=== PATIENT | female | born 1980 | race Caucasian/White ===

== ENCOUNTER 2018-02-04 17:38 | Inpatient (IN) | payer MEDICAID ==
[2018-02-04] MEDS ORDERED: CEFTRIAXONE 2 GM INJ IVPB (18:00)
[2018-02-04] MEDS ORDERED: TERBUTALINE 1 ML (18:07)
[2018-02-04] MEDS: TERBUTALINE 1 MG/ML INJ SC (18:11)
[2018-02-04] MEDS: LACTATED RINGER'S 1,000 ML IV (18:23)
[2018-02-04] MEDS: BETAMET NA PHOS/AC(6 MG/ML) 5ML INJ IM (18:23)
[2018-02-04 18:38] LABS: ADD MAN DIFF? NO
[2018-02-04 18:39] LABS: WHITE BLOOD COUNT 11.3 10^3/ul (4.8-10.8)
[2018-02-04 18:39] LABS: BASOPHILS % 0.4 % (0.0-2.0); EOSINOPHILS % 0.3 % (0.0-7.0); HEMATOCRIT 36.4 % (37.0-47.0); HEMOGLOBIN 12.9 g/dl (12.0-16.0); LYMPHOCYTES % 8.5 % (15.0-51.0); MEAN CORPUSCULAR HEMOGLOBIN 32.7 pg (29.0-33.0); MEAN CORPUSCULAR HGB CONC 35.4 g/dl (32.0-37.0); MEAN CORPUSCULAR VOLUME 92.4 fl (82.0-101.0); MONOCYTE # 0.2 10^3/ul (0.3-0.9); MONOCYTES % 1.6 % (0.0-11.0); NEUTROPHIL # 9.9 10^3/ul (1.6-7.5); NEUTROPHILS % 87.6 % (39.0-77.0); PLATELET COUNT 269 10^3/UL (140-415); RED BLOOD COUNT 3.94 10^6/ul (4.20-5.40); RED CELL DISTRIBUTION WIDTH 13.1 % (11.5-14.5)
[2018-02-04] MEDS: MAGNESIUM SULFATE 4 GM/100 ML 100 ML IV (18:39)
[2018-02-04] MEDS: ACETAMINOPHEN 325 MG TAB PO (18:39)
[2018-02-04 18:59] LABS: ADD UMIC YES; INR 0.93; PROTIME 12.5 Sec (11.9-14.9); UR ASCORBIC ACID NEGATIVE (NEGATIVE); UR BILIRUBIN (Dip) NEGATIVE (NEGATIVE); UR BLOOD (Dip) 1+ mg/dL (NEGATIVE); UR CLARITY CLEAR (CLEAR); UR COLOR YELLOW (YELLOW); UR GLUCOSE (Dip) NEGATIVE (NEGATIVE); UR KETONES (Dip) 1+ mg/dL (NEGATIVE); UR LEUKOCYTE ESTERASE (Dip) NEGATIVE Leu/ul (NEGATIVE); UR NITRITE (Dip) NEGATIVE (NEGATIVE); UR RBC 4 /HPF (0-5); UR SPECIFIC GRAVITY (Dip) 1.014 (1.003-1.030); UR TOTAL PROTEIN (Dip) NEGATIVE (NEGATIVE); UR UROBILINOGEN (Dip) NEGATIVE (NEGATIVE); UR WBC 4 /HPF (0-5)
[2018-02-04 19:00] LABS: PARTIAL THROMBOPLASTIN TIME 24.6 Sec (23.0-35.0)
[2018-02-04] MEDS: MAGNESIUM SULFATE 20 GM/500 ML 500 ML IV (19:03)
[2018-02-04] MEDS: SOD CHLORIDE 0.9% 1,000 ML IV (19:34)
[2018-02-04 19:40] LABS: AMPHETAMINE/METHAMPHETAMINE Negative (NEGATIVE); BARBITURATES Negative (NEGATIVE); BENZODIAZEPINES Negative (NEGATIVE); CANNABINOIDS Negative (NEGATIVE); COCAINE Negative (NEGATIVE); OPIATES Negative (NEGATIVE)
[2018-02-04] MEDS: CEFTRIAXONE 2 GM/50 ML (PMX) 50 ML IVPB (20:04)
[2018-02-05 01:22] LABS: MAGNESIUM 5.6 mg/dl (1.7-2.5)
[2018-02-05] MEDS: LACTATED RINGER'S 1,000 ML IV ×2 (04:46→15:51)
[2018-02-05] MEDS: MAGNESIUM SULFATE 20 GM/500 ML 500 ML IV ×2 (04:49→15:54)
[2018-02-05] MEDS: SOD CHLORIDE 0.9% 1,000 ML IV (06:10)
[2018-02-05 07:31] LABS: MAGNESIUM 6.2 mg/dl (1.7-2.5)
[2018-02-05] MEDS: ACETAMINOPHEN 325 MG TAB PO (07:41)
[2018-02-05] MEDS: DOCUSATE SODIUM 100 MG CAP PO (09:54)
[2018-02-05] MEDS: PRENATAL VITAMIN PO (09:55)
[2018-02-05] MEDS: FERROUS SULFATE (EC) 325 MG TAB PO (09:55)
[2018-02-05] MEDS: BETAMET NA PHOS/AC(6 MG/ML) 5ML INJ IM (18:14)
[2018-02-05 19:09] LABS: MAGNESIUM 4.4 mg/dl (1.7-2.5)
[2018-02-06] MEDS: LACTATED RINGER'S 1,000 ML IV ×4 (03:16→21:00)
[2018-02-06] MEDS: DEXTROSE 5%-LR 1,000 ML IV (07:26)
[2018-02-06] MEDS: FERROUS SULFATE (EC) 325 MG TAB PO (09:50)
[2018-02-06] MEDS: DOCUSATE SODIUM 100 MG CAP PO (09:50)
[2018-02-06] MEDS: PRENATAL VITAMIN PO (09:51)
[2018-02-06] MEDS: DEXTROSE 5%-0.45% NACL 1,000 ML IV ×2 (13:50→20:33)
[2018-02-07] MEDS: DEXTROSE 5%-0.45% NACL 1,000 ML IV ×3 (03:33→19:00)
[2018-02-07] MEDS: LACTATED RINGER'S 1,000 ML IV ×3 (05:00→20:48)
[2018-02-07] MEDS: PRENATAL VITAMIN PO (08:40)
[2018-02-07] MEDS: FERROUS SULFATE (EC) 325 MG TAB PO (08:40)
[2018-02-07] MEDS: DOCUSATE SODIUM 100 MG CAP PO (08:40)
[2018-02-07] MEDS: ACETAMINOPHEN 325 MG TAB PO (08:58)
[2018-02-08] MEDS: LACTATED RINGER'S 1,000 ML IV (04:47)
[2018-02-08] MEDS: PRENATAL VITAMIN PO (09:11)
[2018-02-08] MEDS: DOCUSATE SODIUM 100 MG CAP PO (09:11)
[2018-02-08] MEDS: FERROUS SULFATE (EC) 325 MG TAB PO (09:11)
== END 2018-02-08 12:45 | disposition home or self-care (01) | DRG 833 ==
LOC: OBT 17:38 → PP1 02-06 21:06 → L-D 17:39 → OBT 17:53 → L-D 17:45
DX: O47.03 False labor before 37 completed weeks of gestation, third trimester (principal); Z3A.30 30 weeks gestation of pregnancy; O09.523 Supervision of elderly multigravida, third trimester
CPT/HCPCS: 76815; 76816; 76817; 76818; 80307; 81001; 83735; 85025; 85610; 85730; 86900; 86901; 87086

== ENCOUNTER 2018-02-13 20:46 | Inpatient (IN) | payer MEDICAID ==
[2018-02-13 21:45] LABS: ADD UMIC YES; UR ASCORBIC ACID NEGATIVE (NEGATIVE); UR BACTERIA FEW /HPF (NONE SEEN); UR BILIRUBIN (Dip) NEGATIVE (NEGATIVE); UR BLOOD (Dip) 2+ mg/dL (NEGATIVE); UR CLARITY CLEAR (CLEAR); UR COLOR COLORLESS (YELLOW); UR GLUCOSE (Dip) NEGATIVE (NEGATIVE); UR KETONES (Dip) NEGATIVE (NEGATIVE); UR LEUKOCYTE ESTERASE (Dip) NEGATIVE Leu/ul (NEGATIVE); UR NITRITE (Dip) NEGATIVE (NEGATIVE); UR RBC 0 /HPF (0-5); UR SPECIFIC GRAVITY (Dip) 1.001 (1.003-1.030); UR TOTAL PROTEIN (Dip) NEGATIVE (NEGATIVE); UR UROBILINOGEN (Dip) NEGATIVE (NEGATIVE); UR WBC 0 /HPF (0-5)
[2018-02-13 23:01] LABS: RUPTURE FETAL MEMBRANES NEGATIVE (NEGATIVE)
[2018-02-14] MEDS: LACTATED RINGER'S 1,000 ML IV ×3 (00:50→13:17)
[2018-02-14] MEDS: FERROUS SULFATE (EC) 325 MG TAB PO (10:01)
[2018-02-14] MEDS: PRENATAL VITAMIN PO (10:02)
== END 2018-02-14 16:45 | disposition home or self-care (01) | DRG 833 ==
LOC: OBT 20:46 → L-D 20:47
DX: O41.03X0 Oligohydramnios, third trimester, not applicable or unspecified (principal); Z3A.31 31 weeks gestation of pregnancy; O09.523 Supervision of elderly multigravida, third trimester
CPT/HCPCS: 76816; 76818; 81001; 84112

== ENCOUNTER 2018-03-26 12:07 | Inpatient (IN) | payer MEDICAID ==
[~2018-03-26 12:07] MED LIST: EPINEPHrine 1 MG INJ; OXYTOCIN 30 UNITS/LR 500 ML BAG IV
[2018-03-26] MEDS ORDERED: LACTATED RINGER'S 1,000 ML IV (15:00)
[2018-03-26] MEDS: LACTATED RINGER'S 1,000 ML IV ×2 (15:19→18:14)
[2018-03-26] MEDS ORDERED: METHYLERGONOVINE 0.2 MG INJ IM (17:00)
[2018-03-26] MEDS ORDERED: CARBOPROST 250 MCG INJ IM (17:00)
[2018-03-26] MEDS ORDERED: OXYTOCIN 30 UNITS/LR 500 ML IV (17:00)
[2018-03-26] MEDS ORDERED: MISOPROSTOL 200 MCG TAB PR (17:00)
[2018-03-26 17:16] LABS: ADD MAN DIFF? NO
[2018-03-26 17:21] LABS: BASOPHIL # 0.1 10^3/ul (0.0-0.1); BASOPHILS % 0.5 % (0.0-2.0); EOSINOPHILS # 0.1 10^3/ul (0.0-0.5); HEMATOCRIT 39.7 % (37.0-47.0); HEMOGLOBIN 13.9 g/dl (12.0-16.0); LYMPHOCYTES # 1.8 10^3/ul (0.8-2.9); LYMPHOCYTES % 17.5 % (15.0-51.0); MEAN CORPUSCULAR HEMOGLOBIN 32.9 pg (29.0-33.0); MEAN CORPUSCULAR VOLUME 93.9 fl (82.0-101.0); MEAN PLATELET VOLUME 9.7 fl (7.4-10.4); MONOCYTE # 0.6 10^3/ul (0.3-0.9); MONOCYTES % 6.3 % (0.0-11.0); NEUTROPHIL # 7.3 10^3/ul (1.6-7.5); NEUTROPHILS % 73.1 % (39.0-77.0); PLATELET COUNT 334 10^3/UL (140-415); RED BLOOD COUNT 4.23 10^6/ul (4.20-5.40); RED CELL DISTRIBUTION WIDTH 12.6 % (11.5-14.5)
[2018-03-26 17:25] LABS: INR 0.84; PROTIME 11.6 Sec (11.9-14.9); PT RATIO 0.9
[2018-03-26 17:58] LABS: HEPATITIS B SURFACE ANTIGEN NEGATIVE (NEGATIVE)
[2018-03-26] MEDS ORDERED: TERBUTALINE 1 ML (19:26)
[2018-03-26] MEDS: FAMOTIDINE 20 MG INJ IV (19:34)
[2018-03-26] MEDS: METOCLOPRAMIDE 10 MG INJ IV (19:34)
[2018-03-26] MEDS: CITRIC ACID/NA CITRATE 30 ML CUP PO (19:34)
[2018-03-26] MEDS ORDERED: HYDROmorphONE 1 MG/5 ML IV SYRINGE IV ×3 (20:30)
[2018-03-26] MEDS ORDERED: NALOXONE (0.4 MG/ML) INJ IV (20:30)
[2018-03-26] MEDS ORDERED: FENTAnyl 50 MCG/ML VIAL IV ×2 (20:30)
[2018-03-26] MEDS ORDERED: ZOLPIDEM 5 MG TAB PO (20:30)
[2018-03-26] MEDS ORDERED: HYDROmorphONE 0.5 MG/0.5 ML SYG IV ×2 (20:30)
[2018-03-26] MEDS ORDERED: KETOROLAC 30 MG INJ IV (20:30)
[2018-03-26] MEDS ORDERED: ONDANSETRON 4 MG INJ IV ×2 (20:30)
[2018-03-26] MEDS ORDERED: DIPHENHYDRAMINE 50 MG INJ IV (20:30)
[2018-03-26] MEDS ORDERED: BUPIVACAINE 0.75%/DEXT (SPINAL) 2 ML INJ (20:31)
[2018-03-26] MEDS ORDERED: morphine SULFATE/PF (10 MG/10 ML) INJ (20:31)
[2018-03-26] MEDS ORDERED: OXYTOCIN 10 UNIT INJ ×2 (20:32)
[2018-03-26] MEDS ORDERED: PHENYLephrine (100 MCG/ML) 5ML SYG (21:54)
[2018-03-26] MEDS: OXYTOCIN 30 UNITS/LR 500 ML IV (22:39)
[2018-03-26] MEDS: CEFAZOLIN 2 GM/50 ML (PMX) 50 ML IVPB (22:53)
[2018-03-27] MEDS: LACTATED RINGER'S 1,000 ML IV ×3 (00:44→15:56)
[2018-03-27] MEDS: OXYTOCIN 30 UNITS/LR 500 ML IV ×4 (03:44→15:37)
[2018-03-27] MEDS: KETOROLAC 30 MG INJ IV ×2 (07:43→19:16)
[2018-03-27] MEDS ORDERED: LANOLIN 7 GM TUBE TOP (08:00)
[2018-03-27] MEDS ORDERED: OXYTOCIN 30 UNITS/LR 500 ML IV (08:00)
[2018-03-27] MEDS ORDERED: CARBOPROST 250 MCG INJ IM (08:00)
[2018-03-27] MEDS ORDERED: OXYCODONE/ACETAMINOPHEN (5/325) TAB PO ×2 (08:00)
[2018-03-27] MEDS ORDERED: MISOPROSTOL 200 MCG TAB PR (08:00)
[2018-03-27] MEDS ORDERED: HYDROCODONE/APAP (5/325) TAB PO (08:00)
[2018-03-27] MEDS ORDERED: METHYLERGONOVINE 0.2 MG INJ IM (08:00)
[2018-03-27 08:37] LABS: ADD MAN DIFF? NO
[2018-03-27 08:38] LABS: HEMATOCRIT 34.1 % (37.0-47.0); RED BLOOD COUNT 3.62 10^6/ul (4.20-5.40)
[2018-03-27 08:38] LABS: WHITE BLOOD COUNT 13.2 10^3/ul (4.8-10.8)
[2018-03-27 08:39] LABS: BASOPHIL # 0.1 10^3/ul (0.0-0.1); BASOPHILS % 0.5 % (0.0-2.0); EOSINOPHILS % 0.2 % (0.0-7.0); LYMPHOCYTES # 1.8 10^3/ul (0.8-2.9); LYMPHOCYTES % 13.4 % (15.0-51.0); MEAN CORPUSCULAR HEMOGLOBIN 33.1 pg (29.0-33.0); MEAN CORPUSCULAR HGB CONC 35.2 g/dl (32.0-37.0); MEAN CORPUSCULAR VOLUME 94.2 fl (82.0-101.0); MEAN PLATELET VOLUME 9.2 fl (7.4-10.4); MONOCYTE # 0.7 10^3/ul (0.3-0.9); MONOCYTES % 5.4 % (0.0-11.0); NEUTROPHIL # 10.5 10^3/ul (1.6-7.5); NEUTROPHILS % 79.7 % (39.0-77.0); PLATELET COUNT 260 10^3/UL (140-415); RED CELL DISTRIBUTION WIDTH 12.6 % (11.5-14.5)
[2018-03-27] MEDS: SENNA/DOCUSATE NA (8.6MG/50MG) TAB PO ×2 (09:00→20:21)
[2018-03-27] MEDS: CEFAZOLIN 1 GM/50 ML (PMX) 50 ML IVPB (09:58)
[2018-03-27 16:25] LABS: RAPID PLASMA REAGIN NONREACTIVE (NR)
[2018-03-27] MEDS: DIPHENHYDRAMINE 50 MG INJ IV (20:21)
[2018-03-27] MEDS: IBUPROFEN 600 MG TAB PO (23:44)
[2018-03-28] MEDS: IBUPROFEN 600 MG TAB PO ×3 (05:36→18:14)
[2018-03-28] MEDS: HYDROCODONE/APAP (5/325) TAB PO ×2 (06:43→21:42)
[2018-03-28 08:37] LABS: ADD MAN DIFF? NO
[2018-03-28 08:40] LABS: BASOPHIL # 0.1 10^3/ul (0.0-0.1); BASOPHILS % 0.4 % (0.0-2.0); EOSINOPHILS # 0.1 10^3/ul (0.0-0.5); EOSINOPHILS % 1.1 % (0.0-7.0); HEMATOCRIT 32.6 % (37.0-47.0); HEMOGLOBIN 11.1 g/dl (12.0-16.0); LYMPHOCYTES # 1.7 10^3/ul (0.8-2.9); LYMPHOCYTES % 14.3 % (15.0-51.0); MEAN CORPUSCULAR HEMOGLOBIN 32.6 pg (29.0-33.0); MEAN CORPUSCULAR VOLUME 95.9 fl (82.0-101.0); MEAN PLATELET VOLUME 8.5 fl (7.4-10.4); MONOCYTE # 0.5 10^3/ul (0.3-0.9); MONOCYTES % 4.2 % (0.0-11.0); NEUTROPHIL # 9.6 10^3/ul (1.6-7.5); NEUTROPHILS % 78.9 % (39.0-77.0); PLATELET COUNT 263 10^3/UL (140-415); RED CELL DISTRIBUTION WIDTH 12.9 % (11.5-14.5)
[2018-03-28 08:40] LABS: WHITE BLOOD COUNT 12.2 10^3/ul (4.8-10.8)
[2018-03-28] MEDS: SENNA/DOCUSATE NA (8.6MG/50MG) TAB PO ×2 (09:12→21:42)
[2018-03-28] MEDS: NA PHOSPHATE/BIPHOS 133 ML ENEMA PR (09:30)
[2018-03-28] MEDS: OXYTOCIN 30 UNITS/LR 500 ML IV ×4 (11:37→23:37)
[2018-03-28] MEDS: LACTATED RINGER'S 1,000 ML IV (16:44)
[2018-03-29] MEDS: IBUPROFEN 600 MG TAB PO ×3 (00:19→12:16)
[2018-03-29] MEDS: LACTATED RINGER'S 1,000 ML IV ×2 (00:44→08:44)
[2018-03-29] MEDS: OXYTOCIN 30 UNITS/LR 500 ML IV ×2 (03:37→07:37)
[2018-03-29] MEDS: SENNA/DOCUSATE NA (8.6MG/50MG) TAB PO (09:28)
[2018-03-30] MEDS ORDERED: DIPHTH/TET/ACEL PERTUSS (ADULT) 0.5 ML VIAL IM* (09:00)
== END 2018-03-29 14:58 | disposition home or self-care (01) | DRG 788 ==
LOC: OBT 12:07 → PP1 03-27 00:27 → L-D 12:07 → OBT 16:30 → L-D 16:30
PROVIDERS: Obstetrics & Gynecology
PROC: 10D00Z1 Extraction of Products of Conception, Low, Open Approach (ICD-10-PCS; principal; 2018-03-26 19:45)
PROC: 0UN90ZZ Release Uterus, Open Approach (ICD-10-PCS; 2018-03-26 19:45)
DX: O76 Abnormality in fetal heart rate and rhythm complicating labor and delivery (principal); O34.219 Maternal care for unspecified type scar from previous cesarean delivery; Z3A.37 37 weeks gestation of pregnancy; Z37.0 Single live birth
CPT/HCPCS: 76818; 85025; 85610; 85730; 86592; 86850; 86900; 86901; 87340; 99464